=== PATIENT | female | born 1950 | race Caucasian/White ===

== ENCOUNTER 2023-06-29 16:19 | Inpatient (IN) | payer OTHER, MEDICAID ==
[2023-06-29 17:36] LABS: #Eosinphils 0.1 thou/uL (0.0-0.7); #Monocytes 0.5 thou/uL (0.11-0.59); #Neutrophils 6.1 thou/uL (1.40-6.50); %Basophils 0.5 % (0.0-1.0); %Eosinophils 1.1 % (0.0-10.0); %Lymphocytes 14.8 % (21.0-51.0); %Monocytes 5.7 % (0.0-10.0); %Neutrophils 76.8 % (42.0-75.0); Hemoglobin 11.9 g/dL (12.0-16.0); Mean Corpuscular HGB CONC 31.3 g/dL (32.0-36.0); Mean Corpuscular Hemoglobin 29.2 pg (27.0-31.0); Mean Corpuscular Volume 93.1 fl (78.0-98.0); Mean Platelet Volume 9.7 fL (7.4-10.4); Platelet Count 268 10x3/uL (130-400); RBC Distribution Width 14.4 % (11.5-14.5); Red Blood Cell (RBC) Count 4.08 mill/uL (4.20-5.40); White Blood Cell (WBC) Count 7.9 10x3/uL (4.8-10.8)
[2023-06-29 17:50] LABS: ALT (SGPT) 7 U/L (8-55); AST (SGOT) 11 U/L (5-34); Albumin 3.5 g/dL (3.4-4.8); Alkaline Phosphatase 68 U/L (40-110); BUN (Urea Nitrogen) 14 mg/dL (9.8-20.1); Bilirubin, Total 0.3 mg/dL (0.2-1.2); Calc. Creatinine Clearance 0 mL/min (70-130); Estimated GFR 71; Glucose 181 mg/dL (83-110); Protein, Total 6.5 g/dL (5.8-8.1)
[2023-06-29 17:53] LABS: Troponin I 0.051 ng/mL (< 0.028)
[2023-06-29 18:02] LABS: Anion Gap 22 mmol/L (10-20); Carbon Dioxide 42 mmol/L (23-31); Chloride 82 mmol/L (98-107); Sodium 144 mmol/L (136-145)
[2023-06-29 18:08] LABS: Critical Call Chemistry NUR..LM21@1807; Potassium 2.3 mmol/L (3.5-5.1)
[2023-06-29] MEDS ORDERED: Potassium Chloride 20 MEQ (100 mL) BAG ONE (18:23)
[2023-06-29] MEDS ORDERED: Potassium Chloride 20 MEQ TAB ONE (18:23)
[2023-06-29] MEDS ORDERED: LevoFLOXacin 750 mg/D5W 150 ml Premix Bag ONE (18:23)
[2023-06-29] MEDS ORDERED: Ondansetron ODT 4 MG TAB SL PRN (20:30)
[2023-06-29] MEDS ORDERED: Acetaminophen 325 MG TAB PO PRN (20:30)
[2023-06-29] MEDS ORDERED: Ondansetron PF 4 MG/2 ML Vial IVP PRN (20:30)
[2023-06-29 20:37] LABS: Troponin I 0.039 ng/mL (< 0.028)
[2023-06-29 21:15] LABS: Magnesium 1.8 mg/dL (1.6-2.6)
[2023-06-29] MEDS ORDERED: Glucagon 1 MG/ML KIT IM PRN (21:25)
[2023-06-29] MEDS ORDERED: Dextrose 5% in Water 1,000 ML IV PRN (21:25)
[2023-06-29] MEDS ORDERED: Dextrose 50% Abboject 50 ML SYRINGE SLOW IVP PRN (21:25)
[2023-06-29] MEDS ORDERED: Ipratropium/Albuterol 3 ML NEB NEB PRN (21:26)
[2023-06-29] MEDS ORDERED: Sodium Chloride 0.9% 500 ML IV SCH (21:30)
[2023-06-29] MEDS ORDERED: Electrolyte Replacement Protocol 1 EACH FS SCH (21:30)
[2023-06-29 22:19] VITALS: BMI 29.9
[2023-06-29 22:31] LABS: Lactic Acid 0.8 mmol/L (0.5-2.2)
[2023-06-29 22:44] LABS: SARS-CoV-2 NAA Rapid Test Not Detected (NotDetected)
[2023-06-29] MEDS: Ipratropium/Albuterol 3 ML NEB NEB SCH (22:58)
[2023-06-29] MEDS ORDERED: HumaLOG 300 UNITS/3 ML VIAL ONE (22:58)
[2023-06-29] MEDS: HumaLOG 300 UNITS/3 ML VIAL SC PRN (23:01)
[2023-06-30] MEDS ORDERED: Magnesium 2 GM/50 ML(in water) 2 GM in Premix 1 BAG IVPB SCH (00:45)
[2023-06-30] MEDS ORDERED: Potassium Chloride 20 MEQ (100 mL) BAG ONE (01:08)
[2023-06-30 01:13] LABS: Troponin I 0.018 ng/mL (< 0.028)
[2023-06-30 04:00] LABS: #Monocytes 0.1 thou/uL (0.11-0.59); #Neutrophils 6.2 thou/uL (1.40-6.50); %Basophils 0.3 % (0.0-1.0); %Neutrophils 90.9 % (42.0-75.0); Hematocrit 37.3 % (36.0-47.0); Hemoglobin 11.5 g/dL (12.0-16.0); Mean Corpuscular HGB CONC 30.8 g/dL (32.0-36.0); Mean Corpuscular Hemoglobin 28.3 pg (27.0-31.0); Mean Corpuscular Volume 91.9 fl (78.0-98.0); Mean Platelet Volume 9.9 fL (7.4-10.4); Platelet Count 264 10x3/uL (130-400); Red Blood Cell (RBC) Count 4.06 mill/uL (4.20-5.40); White Blood Cell (WBC) Count 6.8 10x3/uL (4.8-10.8)
[2023-06-30 04:48] LABS: Hemoglobin A1c 7.8 % (4.0-6.0)
[2023-06-30 04:50] LABS: Anion Gap 15 mmol/L (10-20); BUN (Urea Nitrogen) 13 mg/dL (9.8-20.1); Calc. Creatinine Clearance 74 mL/min (70-130); Carbon Dioxide 37 mmol/L (23-31); Chloride 89 mmol/L (98-107); Estimated GFR 81; Glucose 171 mg/dL (83-110); Potassium 3.2 mmol/L (3.5-5.1); Sodium 138 mmol/L (136-145)
[2023-06-30] MEDS: Ipratropium/Albuterol 3 ML NEB NEB SCH ×6 (04:58→22:37)
[2023-06-30 07:53] LABS: Magnesium 2.6 mg/dL (1.6-2.6)
[2023-06-30] MEDS ORDERED: Potassium Chloride 20 MEQ TAB PO SCH (08:00)
[2023-06-30] MEDS: Enoxaparin 40 MG (0.4 mL) SYRINGE SC SCH (09:07)
[2023-06-30] MEDS: HumaLOG 300 UNITS/3 ML VIAL SC PRN (13:29)
[2023-06-30 15:14] LABS: Potassium 3.6 mmol/L (3.5-5.1)
[2023-06-30] MEDS: LevoFLOXacin 500 mg/D5W 500 MG in Premix 1 BAG IVPB SCH (17:50)
[2023-07-01] MEDS: Ipratropium/Albuterol 3 ML NEB NEB SCH ×6 (02:00→21:45)
[2023-07-01] MEDS: Enoxaparin 40 MG (0.4 mL) SYRINGE SC SCH (08:36)
[2023-07-01] MEDS ORDERED: Furosemide 40 MG (4 mL) VIAL SLOW IVP SCH (09:45)
[2023-07-01] MEDS: HumaLOG 300 UNITS/3 ML VIAL SC PRN ×2 (14:00→18:46)
[2023-07-01] MEDS: LevoFLOXacin 500 mg/D5W 500 MG in Premix 1 BAG IVPB SCH (18:45)
[2023-07-01] MEDS: Lisinopril 20 MG TAB PO SCH (20:03)
[2023-07-01] MEDS: Cilostazol 100 MG TAB PO SCH (20:03)
[2023-07-01] MEDS: Theophylline 300 MG ER.TAB PO SCH (20:03)
[2023-07-02] MEDS: Ipratropium/Albuterol 3 ML NEB NEB SCH ×6 (02:12→21:42)
[2023-07-02 07:27] LABS: #Basophils 0.1 thou/uL (0.0-0.2); #Eosinphils 0.1 thou/uL (0.0-0.7); #Monocytes 0.7 thou/uL (0.11-0.59); #Neutrophils 5.7 thou/uL (1.40-6.50); %Basophils 0.6 % (0.0-1.0); %Eosinophils 0.8 % (0.0-10.0); %Lymphocytes 21.3 % (21.0-51.0); %Monocytes 8.4 % (0.0-10.0); %Neutrophils 68.1 % (42.0-75.0); Hematocrit 39.8 % (36.0-47.0); Hemoglobin 12.6 g/dL (12.0-16.0); Mean Corpuscular HGB CONC 31.7 g/dL (32.0-36.0); Mean Corpuscular Hemoglobin 28.8 pg (27.0-31.0); Mean Corpuscular Volume 91.1 fl (78.0-98.0); Mean Platelet Volume 9.3 fL (7.4-10.4); Platelet Count 304 10x3/uL (130-400); RBC Distribution Width 14.7 % (11.5-14.5); Red Blood Cell (RBC) Count 4.37 mill/uL (4.20-5.40); White Blood Cell (WBC) Count 8.4 10x3/uL (4.8-10.8)
[2023-07-02 07:45] LABS: Anion Gap 14 mmol/L (10-20); BUN (Urea Nitrogen) 13 mg/dL (9.8-20.1); Calc. Creatinine Clearance 73 mL/min (70-130); Calcium 9.2 mg/dL (7.8-10.44); Carbon Dioxide 34 mmol/L (23-31); Chloride 96 mmol/L (98-107); Estimated GFR 79; Glucose 165 mg/dL (83-110); Potassium 3.7 mmol/L (3.5-5.1); Sodium 140 mmol/L (136-145)
[2023-07-02] MEDS: Furosemide 40 MG TAB PO SCH (08:57)
[2023-07-02] MEDS: Lisinopril 20 MG TAB PO SCH ×2 (08:57→20:44)
[2023-07-02] MEDS: Atorvastatin Calcium 20 MG TAB PO SCH (08:57)
[2023-07-02] MEDS: Enoxaparin 40 MG (0.4 mL) SYRINGE SC SCH (08:57)
[2023-07-02] MEDS: Empagliflozin 25 MG TAB PO SCH (08:57)
[2023-07-02] MEDS: dilTIAZem ER 60 MG CAP PO SCH (08:57)
[2023-07-02] MEDS: Theophylline 300 MG ER.TAB PO SCH ×2 (09:00→20:43)
[2023-07-02] MEDS: HumaLOG 300 UNITS/3 ML VIAL SC PRN ×3 (13:26→20:47)
[2023-07-02] MEDS ORDERED: Polyethylene Glycol 3350 17 GM Packet PO PRN (13:31)
[2023-07-02] MEDS ORDERED: LevoFLOXacin 500 MG TAB PO SCH (18:00)
[2023-07-02] MEDS ORDERED: predniSONE 20 MG TAB PO SCH (19:15)
[2023-07-02] MEDS ORDERED: Potassium Chloride 20 MEQ TAB PO SCH (19:15)
[2023-07-02] MEDS: Senokot S 8.6-50 MG TAB PO SCH (20:43)
[2023-07-02] MEDS: Cilostazol 100 MG TAB PO SCH (20:44)
[2023-07-03] MEDS: Ipratropium/Albuterol 3 ML NEB NEB SCH ×3 (02:09→11:07)
[2023-07-03] MEDS ORDERED: predniSONE 20 MG TAB PO SCH (08:00)
[2023-07-03] MEDS ORDERED: Potassium Chloride 20 MEQ TAB PO SCH (08:00)
[2023-07-03 08:08] VITALS: BP 118/57; TEMP 98.2
[2023-07-03] MEDS: HumaLOG 300 UNITS/3 ML VIAL SC PRN (08:54)
[2023-07-03] MEDS: Enoxaparin 40 MG (0.4 mL) SYRINGE SC SCH (08:54)
[2023-07-03] MEDS: Furosemide 40 MG TAB PO SCH (08:57)
[2023-07-03] MEDS: Lisinopril 20 MG TAB PO SCH (08:57)
[2023-07-03] MEDS: Theophylline 300 MG ER.TAB PO SCH (08:58)
[2023-07-03] MEDS: Senokot S 8.6-50 MG TAB PO SCH (08:58)
[2023-07-03] MEDS: dilTIAZem ER 60 MG CAP PO SCH (08:58)
[2023-07-03] MEDS: Atorvastatin Calcium 20 MG TAB PO SCH (08:58)
[2023-07-03] MEDS: Empagliflozin 25 MG TAB PO SCH (08:58)
[2023-07-03] MEDS ORDERED: Insulin Glargine 30 UNITS/0.3 ML VIAL SC SCH (09:00)
== END 2023-07-03 11:43 | disposition home or self-care (01) | DRG 177 ==
LOC: ERS 16:19 → ERHOLD 20:13 → OBSVTOIN 20:13 → 2SW 06-30 02:31
PROVIDERS: ADMIT Student in an Organized Health Care Education/Training Program; ATTEND Internal Medicine
DX: J15.69 Pneumonia due to other Gram-negative bacteria (principal); J96.21 Acute and chronic respiratory failure with hypoxia; J44.1 Chronic obstructive pulmonary disease with (acute) exacerbation; J90 Pleural effusion, not elsewhere classified; E87.20 Acidosis, unspecified; J44.0 Chronic obstructive pulmonary disease with (acute) lower respiratory infection; I10 Essential (primary) hypertension; E11.9 Type 2 diabetes mellitus without complications; E83.42 Hypomagnesemia; E86.0 Dehydration; D53.9 Nutritional anemia, unspecified; E87.6 Hypokalemia; F17.210 Nicotine dependence, cigarettes, uncomplicated; Z88.8 Allergy status to other drugs, medicaments and biological substances; Z88.5 Allergy status to narcotic agent; Z88.0 Allergy status to penicillin; Z99.81 Dependence on supplemental oxygen; Z11.52 Encounter for screening for COVID-19; Z79.51 Long term (current) use of inhaled steroids; Z79.899 Other long term (current) drug therapy
CPT/HCPCS: 36415; 36416; 71045; 80048; 80053; 82010; 83036; 83605; 83735; 84484; 85025; 93005; 94640; 94760; 96365; 96366; 96367; J1650; J1815; J1940; J1956; J3475; J3480; J7030; J7512; J7620

== ENCOUNTER 2023-11-24 08:02 | Outpatient (CLI) | payer OTHER | END 2023-11-24 08:03 | disposition home or self-care (01) | LOC: BICRAD 08:02 | PROVIDERS: ATTEND Family Medicine | DX: J18.9 Pneumonia, unspecified organism (principal) | CPT/HCPCS: 71046 ==

== ENCOUNTER 2025-04-08 16:38 | Inpatient (IN) | payer OTHER ==
[2025-04-08] MEDS ORDERED: Albuterol 2.5 MG (3 mL) NEB ONE (17:11)
[2025-04-08] MEDS ORDERED: Albuterol 2.5 MG (0.5 mL) NEB ONE (17:11)
[2025-04-08] MEDS ORDERED: Cefepime 2 GM VIAL ONE (17:14)
[2025-04-08] MEDS ORDERED: Magnesium 2 GM/50 ML BAG (IN WATER) ONE (17:14)
[2025-04-08 17:16] LABS: #Basophils 0.06 10x3/uL (0.0-0.2); #Eosinophils 0.14 10x3/uL (0.0-0.7); #Monocytes 0.72 10x3/uL (0.11-0.59); #Neutrophils 10.18 10x3/uL (1.40-6.50); %Basophils 0.5 % (0.0-1.0); %Eosinophils 1.1 % (0.0-10.0); %Lymphocytes 11.6 % (21.0-51.0); %Monocytes 5.7 % (0.0-10.0); %Neutrophils 80.8 % (42.0-75.0); Hematocrit 40.8 % (36.0-47.0); Hemoglobin 12.9 g/dL (12.0-16.0); Mean Corpuscular Hemoglobin 27.9 pg (27.0-31.0); Mean Corpuscular Volume 88.3 fL (78.0-98.0); Platelet Count 228 10x3/uL (130-400); Red Blood Cell (RBC) Count 4.62 mill/uL (4.20-5.40); White Blood Cell (WBC) Count 12.60 10x3/uL (4.8-10.8)
[2025-04-08 17:17] LABS: Actual Bicarbonate (HCO3v) 32.7 mEq/L (22-28); Analyzer IN Cardio ER; Base Excess 6.8 mEq/L (-2.0 to +3.0); Calcium, Ionized (venous) 1.09 mmol/L (1.16-1.32); Chloride (VBG) 99 mmol/L (98-106); Hematocrit-VBG 39 % (36.0-47.0); Hemoglobin (Hb) 13.2 g/dL (11.7-16.1); Potassium (VBG) 3.47 mmol/L (3.70-5.30); Sodium 142 mmol/L (133-146)
[2025-04-08 17:39] LABS: ALT (SGPT) 7 U/L (Less than 34); AST (SGOT) 15 U/L (11-34); Albumin 3.8 g/dL (3.1-4.5); Alkaline Phosphatase 89 U/L (40-110); Anion Gap 17 mmol/L (10-20); BUN (Urea Nitrogen) 16 mg/dL (9.8-20.1); Bilirubin, Total 0.1 mg/dL (0.3-1.2); Calc. Creatinine Clearance 0 mL/min (70-130); Calcium 9.6 mg/dL (7.8-10.44); Carbon Dioxide 35 mmol/L (23-31); Chloride 97 mmol/L (98-107); Globulin 3.4 g/dL (2.4-3.5); Glucose 129 mg/dL (83-110); Magnesium 2.0 mg/dL (1.6-2.6); Potassium 3.3 mmol/L (3.5-5.1); Sodium 146 mmol/L (136-145)
[2025-04-08 18:30] LABS: Influenza A by NAA Not Detected (NotDetected); Influenza B by NAA Not Detected (NotDetected); SARS-CoV-2 NAA Rapid Test Not Detected (NotDetected)
[2025-04-08] MEDS ORDERED: Senokot S 8.6-50 MG TAB PO PRN (18:34)
[2025-04-08] MEDS ORDERED: Calcium Carbonate 500 MG ChewTAB PO PRN (18:34)
[2025-04-08] MEDS ORDERED: Albuterol 2.5 MG (3 mL) NEB NEB PRN (18:34)
[2025-04-08] MEDS ORDERED: Acetaminophen 325 MG TAB PO PRN (18:34)
[2025-04-08] MEDS ORDERED: Ondansetron PF 4 MG/2 ML Vial IVP PRN (18:34)
[2025-04-08] MEDS ORDERED: Benzonatate 100 MG CAP PO PRN (19:00)
[2025-04-08 21:59] VITALS: BMI 22.1
[2025-04-08] MEDS: Potassium Chloride 20 MEQ in Premix 1 BAG IVPB SCH (22:52)
[2025-04-08] MEDS: Famotidine/PF 20 mg/2ml Vial SLOW IVP SCH (22:54)
[2025-04-08] MEDS: Theophylline 300 MG ER.TAB PO SCH (22:55)
[2025-04-08] MEDS ORDERED: Dextrose 50% Abboject 50 ML SYRINGE SLOW IVP PRN (23:16)
[2025-04-08] MEDS ORDERED: Glucagon 1 MG/ML KIT IM PRN (23:16)
[2025-04-08] MEDS: Mometasone 200 MCG/Formoterol 5 MCG 120 PUFF INHALER INH SCH (23:20)
[2025-04-09 04:52] LABS: #Basophils Less than 0.03 10x3/uL (0.0-0.2); #Eosinophils Less than 0.03 10x3/uL (0.0-0.7); #Monocytes 0.04 10x3/uL (0.11-0.59); #Neutrophils 5.83 10x3/uL (1.40-6.50); %Basophils 0.2 % (0.0-1.0); %Eosinophils 0.0 % (0.0-10.0); %Lymphocytes 6.2 % (21.0-51.0); %Monocytes 0.6 % (0.0-10.0); %Neutrophils 92.7 % (42.0-75.0); Hematocrit 38.9 % (36.0-47.0); Hemoglobin 12.3 g/dL (12.0-16.0); Mean Corpuscular Hemoglobin 27.8 pg (27.0-31.0); Mean Corpuscular Volume 87.8 fL (78.0-98.0); Platelet Count 200 10x3/uL (130-400); Red Blood Cell (RBC) Count 4.43 mill/uL (4.20-5.40); White Blood Cell (WBC) Count 6.29 10x3/uL (4.8-10.8)
[2025-04-09 05:19] LABS: ALT (SGPT) 7 U/L (Less than 34); AST (SGOT) 12 U/L (11-34); Albumin 3.4 g/dL (3.1-4.5); Alkaline Phosphatase 82 U/L (40-110); Anion Gap 14 mmol/L (10-20); BUN (Urea Nitrogen) 17 mg/dL (9.8-20.1); Bilirubin, Total 0.1 mg/dL (0.3-1.2); Calc. Creatinine Clearance 64 mL/min (70-130); Calcium 9.4 mg/dL (7.8-10.44); Carbon Dioxide 30 mmol/L (23-31); Chloride 104 mmol/L (98-107); Globulin 3.4 g/dL (2.4-3.5); Glucose 193 mg/dL (83-110); Magnesium 2.6 mg/dL (1.6-2.6); Potassium 4.7 mmol/L (3.5-5.1); Sodium 143 mmol/L (136-145)
[2025-04-09 09:15] VITALS: BP 140/56; TEMP 98.7
[2025-04-09] MEDS: Lisinopril 20 MG TAB PO SCH (09:17)
[2025-04-09] MEDS: Enoxaparin 40 MG (0.4 mL) SYRINGE SC SCH (09:17)
[2025-04-11] MEDS ORDERED: PNEUMOC 20-VAL CONJ-DIP CRM/PF 0.5 ML SYRINGE IM ONE (09:00)
== END 2025-04-09 14:17 | disposition home or self-care (01) | DRG 193 ==
LOC: ERS 16:38 → SUATTDRO 16:38 → 2NO 18:34
PROVIDERS: ADMIT Internal Medicine; ATTEND Student in an Organized Health Care Education/Training Program
PROC: 4A033R1 Measurement of Arterial Saturation, Peripheral, Percutaneous Approach (ICD-10-PCS; principal; 2025-04-09)
PROC: 3E03329 Introduction of Other Anti-infective into Peripheral Vein, Percutaneous Approach (ICD-10-PCS; principal; 2025-04-09)
PROC: 5A09357 Assistance with Respiratory Ventilation, Less than 24 Consecutive Hours, Continuous Positive Airway Pressure (ICD-10-PCS; principal; 2025-04-09)
DX: J18.9 Pneumonia, unspecified organism (principal); J96.21 Acute and chronic respiratory failure with hypoxia; J44.1 Chronic obstructive pulmonary disease with (acute) exacerbation; J44.0 Chronic obstructive pulmonary disease with (acute) lower respiratory infection; E87.1 Hypo-osmolality and hyponatremia; E78.5 Hyperlipidemia, unspecified; E11.51 Type 2 diabetes mellitus with diabetic peripheral angiopathy without gangrene; F17.210 Nicotine dependence, cigarettes, uncomplicated; I11.0 Hypertensive heart disease with heart failure; I50.9 Heart failure, unspecified; Z99.81 Dependence on supplemental oxygen; Y95 Nosocomial condition; Z88.1 Allergy status to other antibiotic agents; Z88.8 Allergy status to other drugs, medicaments and biological substances; E87.6 Hypokalemia; E87.8 Other disorders of electrolyte and fluid balance, not elsewhere classified
CPT/HCPCS: 36415; 36416; 71045; 80053; 82805; 83605; 83735; 83880; 84484; 85025; 87040; 87636; 93005; 94640; 94760; 96365; 96366; 96367; 96368; J0692; J1308; J1650; J2919; J3475; J3480; J7611